=== PATIENT | female | born 1940 | race Caucasian/White ===

== ENCOUNTER 2016-08-12 13:55 | Emergency (ER) | payer OTHER ==
--- NOTE | 2016-08-12 15:30 | Diag Imaging Result Document ---
PROCEDURE NAME: XRAY HIP UNILATERAL LT - 08/12/2016 LEFT HIP, 2 VIEWS: COMPARISON: CT abdomen and pelvis, 12/26/2012. FINDINGS: There is a left hip prosthesis without dislocation. 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 This did not appear to be the case on 12/26/2012. No acute fractures. 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
--- NOTE | 2016-08-12 16:25 | PROVIDER DOCUMENTATION ---
HPI-Musculoskeletal Pain/Inj <Jeffrey Payton - Last Filed: 08/12/16 16:43> - GENERAL Source: patient, family - HX OF PRESENT ILLNESS-MUSKULOSKELTAL Quality of Pain: reports: aching, dull Severity in ED: mild, moderate Onset/Duration: just prior to arrival Timing: still present, constant, getting worse Modifying Factors: improves with: nothing. worse with: analgesics Any recent injury?: No Locality of Occurance: Home Similar Symptoms Previously?: No Recently seen or treated by another doctor?: No <Berna Figueroa - Last Filed: 08/12/16 22:01> - GENERAL Chief Complaint: Hip Pain Stated Complaint: HIP PAIN Time Seen by Provider: 08/12/16 15:17 - HX OF PRESENT ILLNESS-MUSKULOSKELTAL Nature of Presenting Problem: 75 year old obese WF presents with c/o left hip pain and inability to bear weight. pt reports she worked out today on the treadmill, the stationary bicycle and spent the early afternoon moving furniture. pt reports she sat down for lunch and was unable to stand up and bear weight due to excruciating pain. pt reports she had a left hip replacement approximately 3 years (her 2nd for a depuy). denies fall or new injury. denies sensation of popping, tearing. ( Berna Figueroa) Review of Systems - Adult - REVIEW OF SYSTEMS - ADULT Constitutional: reports: no symptoms reported. denies: chills, fever, fatique Eyes: reports: no symptoms reported. denies: discharge, blurred vision, double vision, redness Ears, Nose, Mouth & Throat: reports: no symptoms reported. denies: ear discharge, ear pain, nose pain, loose teeth, throat pain, throat swelling Cardiovascular: reports: no symptoms reported. denies: chest pain, orthopnea, syncope Respiratory: reports: no symptoms reported. denies: chronic cough, cough, shortness of breath, wheezing Gastrointestinal: reports: no symptoms reported. denies: abdominal pain, diarrhea, nausea, vomiting Genitourinary: reports: no symptoms reported. denies: dysuria, hematuria, urgency Musculoskeletal: reports: see HPI, bone pain, joint pain (right hip). denies: back pain, frequent leg cramps, joint swelling, muscle aches, muscle weakness, neck pain Integumentary: reports: no symptoms reported. denies: hives, itching, rash, skin sores/ulcer Neurological: reports: no symptoms reported. denies: ataxia, seizure, tremors Psychiatric: reports: no symptoms reported Endocrine: reports: no symptoms reported Hematologic/Lymphatic: reports: no symptoms reported Allergic/Immunologic: reports: no symptoms reported All Other Systems: Reviewed and Negative <Berna Figueroa - Last Filed: 08/12/16 22:01> Past History - Adult - PAST MEDICAL HISTORY-ADULT Review of Records: reports: Old Records Reviewed, Nursing Assessment Review, Medications Reviewed, Social history reviewed & non-contributory. Major Childhood Illnesses: reports: denies history Cardiovascular: reports: HTN Respiratory: reports: asthma Gastrointestinal: reports: denies history Obstetrical/Gynecological: reports: denies history Genitourinary: reports: denies history Musculoskeletal: reports: orthopedic injury Neurological: reports: denies history Endocrine/Immune: reports: denies history Other Conditions: reports: denies history - PRIOR SURGERIES/PROCEDURES Surgical/Procedure History: reports: orthopedic (extremity), joint replacement - FAMILY HISTORY Family History: reviewed, not pertinent - SOCIAL HISTORY Smoking: denies, quit greater than 1 year, cigarettes Substance Use: none/never Alcohol Use Frequency: never <Berna Figueroa - Last Filed: 08/12/16 22:01> Physical Exam-Injury Related - Physical Exam-Injury Related Initial Vital Signs Reviewed: Yes General Appearance: appears well, alert, no apparent distress. negative: mild distress, moderate distress, severe distress, lethargic, slow to respond, obtunded, combative Eyes: pink conjunctivae. negative: conjuctival exudate, pale conjunctivae, photophobia, sclera injected, scleral icterus, subconjunctival hemorrhage Head, Ears, Nose, Mouth & Throat: normocephalic/atraumatic, moist mucous membranes Neck: non-tender, full range of motion, supple, normal inspection. negative: C- spine tenderness, limited range of motion, pain on movement, trachial deviation , tender midline, vertebral point tenderness Respiratory: chest non-tender, lungs clear, normal breath sounds, no pleuratic chest pain, no respiratory distress, no accessory muscle use. negative: respiratory distress, decreased breath sounds, accessory muscle use, crackles, rales, rhonchi, stridor, wheezing Cardiovascular: normal peripheral pulses, regular rate, rhythm, no edema, no gallop. negative: bradycardia, tachycardia Chest/Breast: deferred Peripheral Pulses: radial (R): 3+, radial (L): 3+, dorsalis-pedis (R): 3+, dorsalis-pedis (L): 3+ Abdominal Exam: normal bowel sounds, non tender, soft Female Genitalia/Pelvic Exam: deferred Rectal Exam: deferred Hemoccult Exam: deferred Lymphatic: no adenopathy Back Exam: normal inspection, no CVA tenderness, no vertebral tenderness. negative: CVA tenderness, decreased range of motion, swelling, vertebral tenderness Extremity: non-tender, normal inspection, no pedal edema, no calf tenderness, normal capillary refill, pelvis stable, tenderness (left lateral posterior hip tenderness). negative: normal range of motion, normal gait, abnormal NV exam, calf tenderness, deformity, erythema, inflammation, joint effusion, pulse deficit, pedal edema, slow capillary refill, swelling Integumentary: normal color, warm/dry Neurologic: grossly normal, no motor/sensory deficits Psych/Mental Status: normal mood/affect, normal thought content, normal thought process, oriented x 3 - Glascow Coma Score Best Eye Response ([place]): (4) open spontaneously Best Verbal Response ([place]): (5) oriented Best Motor Response ([place]): (6) obeys commands [place] Total: 15 <Berna Figueroa - Last Filed: 08/12/16 22:01> Progress - CONSULTS/PCP/HOSPITALIST Notification #1 *Consult/PCP/Hospitalist*: Time Discussed: 16:43 Reason/Comments: Transfer to ER Consult Disposition: other <Jeffrey Payton - Last Filed: 08/12/16 16:43> - XRAY 1 XRAY: Left XRAY Study: Hip Impression: Abnormal (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 per Dr. Alcantara.) - CONSULTS/PCP/HOSPITALIST Notification #1 *Consult/PCP/Hospitalist*: Dr. Hernandez (orthopedic) Time Discussed: 16:23 Consult Disposition: other ([facility] orthopedic group does not treat this issue, recommends transfer to [facility] ED for consult.) <Berna Figueroa - Last Filed: 08/12/16 22:01> - PLAN OF CARE/RESULTS Progress/Plan/Lab Results: Orders Category Date Time Status XRAY HIP UNILATERAL LT [RAD] Stat Exams 08/12/16 14:00 Completed Vital Signs - 24 hr 08/12/16 13:58 Temperature 98.7 F Pulse Rate 79 Respiratory 20 Rate Blood Pressure 156/56 O2 Sat by Pulse 98 Oximetry Pt refuses any pain medications upon evaluation. (Berna Figueroa) Departure <Jeffrey Payton - Last Filed: 08/12/16 16:43> - Departure Time of Disposition Order: 16:22 Certified Medical Emergency: Emergent <Berna Figueroa - Last Filed: 08/12/16 22:01> - Departure DIAGNOSIS: Protrusio acetabuli Disposition: [facility] Condition: Stable Referrals: Grayson Thompson MD [Primary Care Provider] - Attestation - Scribe Verification/Attestation Scribe:: Jeffrey Payton Acting as Scribe for:: Sivakumar Mccrary Scribe documention review:: This chart was documented by a scribe and accurately reflects the service the provider performed and the decisions made by the provider. <Jeffrey Payton - Last Filed: 08/12/16 16:43> - Physician/ [facility] Attestation Patient care was provided by Advanced Practice Provider:: Yes Advanced Practice Provider:: Berna Figueroa Advanced Practice Provider documentation review:: The Mid-level provider documentation, treatment plan and medical decision making was reviewed by the physician who agrees with all treatment and medical decision making by the MLP. <Berna Figueroa - Last Filed: 08/12/16 22:01> Physician Attestation - Physician Attestation I, the provider, attest to the following statement:: Sivakumar Mccrary Physician documentation Attestation:: This documentation recorded by the scribe accurately reflects the service I personally performed and the decisions made by me. <Jeffrey Payton - Last Filed: 08/12/16 16:43>
[2016-08-12 17:34] VITALS: BP 149/69
== END 2016-08-12 17:40 | disposition short-term general hospital (02) ==
LOC: ED 13:55
DX: M24.7 Protrusio acetabuli (principal); M25.552 Pain in left hip; I10 Essential (primary) hypertension; J45.909 Unspecified asthma, uncomplicated; Z79.899 Other long term (current) drug therapy; Z96.642 Presence of left artificial hip joint; Z87.891 Personal history of nicotine dependence